=== PATIENT | female | born 1985 | race Caucasian/White ===

== ENCOUNTER 2019-04-11 05:31 | Inpatient (IN) | payer OTHER ==
[2019-04-11] VITALS (18 sets, daily range): BP systolic 113–144; BP diastolic 66–98; PULSE 65–106; TEMP 97.4–98.6
[~2019-04-11] VITALS: Ht 160 cm; Wt 80.9 kg
[~2019-04-11 05:31] MED LIST: FLONASEALLERGY NS; IRON325 MG PO; MOTRIN 600600 MG/TAB PO; PERCOCET 325 MG1 TA2 PO; PRENATAL1 TA7 PO; ZYRTEC 10MG10 MG PO
--- NOTE | 2019-04-11 06:00 | NUR ---
0530- Patient and ambulatory to RM-209. Patient into restroom to void and change into gown. Patient back to bed. EFM and TOCO on and tracing. VSS. 0545- IV started. LR infusing per protocol. Labs collected and sent by CHRISTIANE Del Rio. Consents discussed and signed. 0600- Report given to CHRISTIANE Riddle.
[2019-04-11 07:20] LABS: BASO % 0.6 % (0.0-2.0); EOS # 0.1 (0.0-0.7); GRAN # 4.4 (1.4-6.5); GRAN % 62.7 % (42.2-75.2); HEMATOCRIT 39.1 % (37.0-47.0); LYMPH # 1.8 (1.2-3.4); LYMPH % 25.5 % (20.0-51.0); MEAN CELL VOLUME 90 fl (80.0-100.0); MEAN CORPUSCULAR HEMOGLOBIN 30 pg (27.0-31.0); MEAN CORPUSCULAR HGB CONC 33 g/dl (33.0-37.0); MEAN PLATELET VOLUME 11.5 fl (7.4-10.4); MONO # 0.6 (0.1-0.6); MONO % 8.8 % (1.7-9.3); PLATELET COUNT 191 K/mm3 (130-400); RED BLOOD COUNT 4.36 M/mm3 (4.10-5.30); REDCELL DISTRIBUTION WIDTH-CV 13.6 % (11.5-14.5)
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
[2019-04-12 07:25] VITALS: BP 123/74; PULSE 78; TEMP 98.5
[2019-04-12] MEDS ORDERED: IBU600 MG PO (08:17)
[2019-04-12] MEDS ORDERED: PERCOCET 325 MG1 TA2 PO (08:17)
--- NOTE | 2019-04-12 11:00 | NUR ---
Initial visit; Mom thanked for looking in on her and offering congratulations for the of her son. thanked mom for choosing [facility].
[2019-04-12 16:10] VITALS: BP 112/68; PULSE 64; TEMP 97.4
[2019-04-12 22:40] VITALS: BP 120/75; PULSE 78; TEMP 98.6
[2019-04-13 07:20] VITALS: BP 123/85; PULSE 91; TEMP 98.4
[2019-04-13 15:45] VITALS: BP 130/75; PULSE 86; TEMP 98.4
[2019-04-13 21:00] VITALS: BP 124/77; PULSE 75; TEMP 98.5
[2019-04-14 07:55] VITALS: BP 136/82; PULSE 87; TEMP 97.5
== END 2019-04-14 11:35 | disposition home or self-care (01) | DRG 788 ==
LOC: OB 05:31 → LDR 14:45 → OB 04-14 11:35
PROVIDERS: ADMIT Obstetrics & Gynecology
PROC: 10D00Z1 Extraction of Products of Conception, Low, Open Approach (ICD-10-PCS; principal; 2019-04-11)
DX: O34.211 Maternal care for low transverse scar from previous cesarean delivery (principal); Z37.0 Single live birth; Z3A.39 39 weeks gestation of pregnancy; Z23 Encounter for immunization
CPT/HCPCS: J0171; J0690; J1885; J2270; J2370; J2405; J2590; J7120